=== PATIENT | female | born 1975 | race Caucasian/White ===

== ENCOUNTER 2023-09-05 16:20 | Outpatient (CLI) | payer OTHER, SELFPAY | END 2023-09-05 16:21 | disposition home or self-care (01) | PROVIDERS: Visit Provider Registered Nurse | DX: Z13.220 Encounter for screening for lipoid disorders (principal); Z13.1 Encounter for screening for diabetes mellitus | CPT/HCPCS: 80061; 82947 ==

== ENCOUNTER 2023-09-29 08:28 | Outpatient (CLI) | payer OTHER, SELFPAY ==
--- NOTE | 2023-09-29 09:34 | W.ANESCHARGE ---
Anesthesia Charges Start Date/Time Anesthesia Start Date: 09/29/23 Anesthesia Start Time: 09:03 Stop Date/Time Anesthesia Stop Date: 09/29/23 Anesthesia Stop Time: 09:27
== END 2023-09-29 08:29 | disposition home or self-care (01) ==
LOC: OP CLINIC 08:30
PROVIDERS: PCP Registered Nurse; Visit Provider Internal Medicine
DX: Z12.11 Encounter for screening for malignant neoplasm of colon (principal)
CPT/HCPCS: 00812; 45378; J2704

== ENCOUNTER 2023-11-21 16:07 | Outpatient (CLI) | payer OTHER, SELFPAY ==
--- NOTE | 2023-11-21 16:20 | MM_ITS ---
Patient: ABDIRAHMAN CUENCA Facility:?[facility] Patient ID:?[id number] Site Patient ID:?[id number]. Site :?[id number] Study:?XRay-Breast Bilateral 3D W/CAD-11/21/2023 4:38:10 PM Ordering Physician:Manju Final Report: BILATERAL SCREENING MAMMOGRAM WITH COMPUTER-AIDED DETECTION AND TOMOSYNTHESIS TECHNIQUE: CC and MLO views were obtained. These mammographic images have been obtained using full-field digital technique. These mammographic images were interpreted with the benefit of computer-aided detection. Breast Tomosynthesis was used in this interpretation. COMPARISON FILM: Baseline. FINDINGS: The breasts are heterogeneously dense, which may obscure small masses. IMPRESSION: There is no radiographic evidence for malignancy. ASSESSMENT: BI-RADS Category 1: Negative RECOMMENDATION: Routine screening mammogram in 1 year. A lay language report of this examination will be provided to the patient. Toño Flores M.D. Diagnostic Radiologist [email or web address] DSM/sp R& Transcribed: 5:40 p.m. SP/Dictated by: Toño Flores MD @ 11/22/2023 9:36:00 AM Signed by:?Toño Flores MD @11/22/2023 5:45:12 PM (Electronic Signature)
== END 2023-11-21 16:08 | disposition home or self-care (01) ==
LOC: MAMMO 16:08
PROVIDERS: Visit Provider Registered Nurse
DX: Z12.31 Encounter for screening mammogram for malignant neoplasm of breast (principal); R92.2 Inconclusive mammogram
CPT/HCPCS: 77063; 77067

== ENCOUNTER 2024-09-06 15:27 | Outpatient (CLI) | payer OTHER, SELFPAY | END 2024-09-06 15:28 | disposition home or self-care (01) | LOC: NFLDREF 15:28 | PROVIDERS: Visit Provider Registered Nurse | DX: N93.9 Abnormal uterine and vaginal bleeding, unspecified (principal) | CPT/HCPCS: 84443 ==

== ENCOUNTER 2024-09-16 16:22 | Outpatient (CLI) | payer OTHER, SELFPAY ==
--- NOTE | 2024-09-16 16:45 | CRLHL7_ITS ---
For Patients: As a result of the Century Cures Act, medical imaging exams and procedure reports are released immediately into your electronic medical record. You may view this report before your referring provider. If you have questions, please contact your health care provider. INDICATION: Abnormal uterine ad vaginal bleeding COMPARISON: none TECHNIQUE: 2D prescott scale and color Doppler images were acquired of the pelvis using a transabdominal and transvaginal approach. FINDINGS: Sonographic images demonstrate a normal size and smooth outer contour of the uterus. Uterus measures 8.7 cm in length by 4.4 cm in AP diameter by 5.5 cm in transverse dimension. The myometrium has a normal uniform echotexture. The endometrial lining appears thickened and measures 18 mm in composite thickness. The right ovary measures 4.1 x 3.4 x 3.7 cm in size and the left ovary measures 4.2 x 2.1 x 2.2 cm. The ovaries demonstrate normal arterial and venous blood flow on color Doppler analysis. There are no suspicious fluid collections within the cul-de-sac. Trace physiologic free fluid noted. IMPRESSION: Thickened endometrium measuring 18 millimeters. No endometrial fluid. No uterine fibroid. Dictated by Toño Flores MD @ 09/16/2024 9:35:59 PM (Electronically Signed)
== END 2024-09-16 16:23 | disposition home or self-care (01) ==
LOC: US 16:22
PROVIDERS: Visit Provider Registered Nurse
DX: N93.9 Abnormal uterine and vaginal bleeding, unspecified (principal); R93.89 Abnormal findings on diagnostic imaging of other specified body structures
CPT/HCPCS: 76830; 76856

== ENCOUNTER 2024-12-02 15:18 | Outpatient (CLI) | payer OTHER, SELFPAY ==
--- NOTE | 2024-12-02 15:20 | CRLHL7_ITS ---
For Patients: As a result of the Cures Act, medical imaging exams and procedure reports are released immediately into your electronic medical record. You may view this report before your referring provider. If you have questions, please contact your health care provider. INDICATION: BILATERAL SCREENING MAMMOGRAM, ASYMPTOMATIC 49 Y/O FEMALE COMPARISON: 11/21/2023 TECHNIQUE: Digital mammogram in CC and MLO projections including computer-aided detection (CAD) and tomosynthesis. BREAST COMPOSITION: The breasts are heterogeneously dense, which may obscure small masses. FINDINGS: No suspicious findings. ASSESSMENT: BI-RADS 2 Benign RECOMMENDATION: Annual screening mammogram. A lay language report of this examination will be provided to the patient. Dictated by: Toño Flores MD @ 12/10/2024 12:27:12 (Electronically Signed)
== END 2024-12-02 15:19 | disposition home or self-care (01) ==
LOC: MAMMO 15:18
PROVIDERS: Visit Provider Registered Nurse
DX: Z12.31 Encounter for screening mammogram for malignant neoplasm of breast (principal); R92.333 Mammographic heterogeneous density, bilateral breasts
CPT/HCPCS: 77063; 77067